=== PATIENT | male | born 1955 | race Caucasian/White ===

== ENCOUNTER 2016-04-08 08:13 | Inpatient (IN) | payer OTHER ==
--- NOTE | 2016-03-18 08:49 | PAT Medication Instructions ---
Service Date Mar 18, 2016. Current Home Medication List Atorvastatin (Lipitor), 40 MG PO QAM Diltiazem Hcl (Cardizem), 120 MG PO QAM Gabapentin (Neurontin), 900 MG PO AM/PM Gabapentin (Neurontin), 1,500 MG PO HS Ibuprofen (Advil), 400-600 MG PO TID Meloxicam (Mobic), 15 MG PO QAM Medication Instructions For Your Scheduled Surgery - Check with surgeon for instructions: Ibuprofen (Advil), 400-600 MG PO TID Meloxicam (Mobic), 15 MG PO QAM - Take the following medications the morning of surgery with a sip of water: Gabapentin (Neurontin), 900 MG PO AM/PM Atorvastatin (Lipitor), 40 MG PO QAM Diltiazem Hcl (Cardizem), 120 MG PO QAM - Take the following medications as scheduled the night before surgery: Gabapentin (Neurontin), 900 MG PO AM/PM Gabapentin (Neurontin), 1,500 MG PO HS If you have any questions please call us at [phone] (Francesca Kamara PA-C) or [phone] or [phone]
--- NOTE | 2016-03-18 09:18 | DIAGNOSTIC IMAGING REPORT ---
CHEST PREADMISSION(PA/LAT) CLINICAL HISTORY: Preoperative evaluation. COMPARISON STUDY: No previous studies for comparison. FINDINGS: Lung volumes are normal. Lungs are clear. There is no pneumothorax or pleural effusion. There is no evidence of pulmonary edema. Cardiac size is normal. Mediastinal contours are normal. IMPRESSION: No acute cardiopulmonary findings. Electronically signed by: César Berger M.D. 03/18/2016 9:16 AM Dictated Date/Time: 03/18/2016 9:14 AM
[2016-03-18 09:33] LABS: BASO % 0.3 %; BASO ABS # 0.03 K/uL (0-0.2); COMPLETE YES; HEMATOCRIT 43.6 % (42-52); IG% 0.7 %; LYMPH % 18.4 %; MEAN CELL VOLUME 89.2 fL (80-100); MEAN CORPUSCULAR HEMOGLOBIN 31.9 pg (25-34); MEAN CORPUSCULAR HGB CONC 35.8 g/dl (32-36); MEAN PLATELET VOLUME 9.9 fL (7.4-10.4); MONO % 8.3 %; NEUT % 71.3 %; PLATELET COUNT 228 K/uL (130-400); RED BLOOD COUNT 4.89 M/uL (4.7-6.1)
[2016-03-18 09:42] LABS: PROTHROMBIN TIME (PATIENT) 10.3 SECONDS (9.0-12.0)
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
[2016-04-08] VITALS (8 sets, daily range): BP systolic 96–126; BP diastolic 59–87; PULSE 71–85; TEMP 36.6–36.9; O2SAT 92–98; Ht 170.2 cm; Wt 87.8 kg
[~2016-04-08] VITALS: Ht 170.2 cm; Wt 87.8 kg
[~2016-04-08 08:13] MED LIST: ACETAMINOPHEN 500 MG TAB PO SCH; ATOR-24 PO; BUPIVACAINE 0.25% 30 ML VIAL ONE; BUPIVACAINE 0.5 % 5 MG/1 ML PF 10ML VIAL ONE; BUPIVACAINE LIPOSOME 266 MG, BUPIVACAINE/EPINEPHRINE INJ 50 ML, SODIUM CHLORIDE 0.9% PF... INFIL SCH; CEFAZOLIN 2000 MG/60 ML D5W 60 ML IV SCH; DILT120T8 PO; FAMOTIDINE 20 MG TAB PO SCH; GABA-113 PO; GABAPENTIN 300 MG CAP PO SCH; IBUP-1050 PO; LACTATED RINGER'S 1000ML 1,000 ML IV SCH; LACTATED RINGER'S 1000ML 500 ML IV ONE; LACTATED RINGER'S 1000ML IV SCH; MELO7.5T5 PO; METOCLOPRAMIDE HCL 10 MG TAB PO SCH; SCOPOLAMINE 1.5 MG TDSY TD SCH; TRANEXAMIC ACID INJ 1,000 MG in SODIUM CHLORIDE 0.9% 100ML 100 ML IV SCH
--- NOTE | 2016-04-08 08:41 | History & Physical Bridge Note ---
H&P Re-Evaluation Bridge Note: I have examined the patient, reviewed the History & Physical and in the interval since the performance of the History & Physical I have noted the following changes of clinical significance: No changes noted
[2016-04-08] MEDS ORDERED: LIDOCAINE HCL 2% 2 ML VIAL (20MG/ML) ONE (09:26)
[2016-04-08] MEDS ORDERED: PROPOFOL IV EMULSION 10 MG/ML 20 ML VIAL IV ONE ×3 (09:26→12:14)
[2016-04-08] MEDS ORDERED: MIDAZOLAM HCL 1 MG/ML 2ML VIAL ONE (09:26)
[2016-04-08] MEDS ORDERED: FENTANYL CITRATE INJ 50 MCG/1 ML 2 ML VIAL ONE (09:27)
[2016-04-08] MEDS ORDERED: BACITRACIN 50000 UNIT VIAL ONE (10:37)
[2016-04-08] MEDS ORDERED: BUPIVACAINE/EPINEPHRINE 0.25% 1:200,000 30 ML VIAL ONE (10:37)
[2016-04-08] MEDS ORDERED: BUPIVACAINE LIPOSOME 1/3% 266 MG/20 ML VIAL INFIL ONE (10:38)
[2016-04-08] MEDS ORDERED: SODIUM CHLORIDE 0.9% PF 50 ML VIAL ONE (10:38)
[2016-04-08] MEDS ORDERED: GLYCOPYRROLATE INJ 0.2 MG/ML VIAL ONE (11:00)
[2016-04-08] MEDS ORDERED: EpHEDrine SULFATE 50MG/5ML SYR ONE (11:19)
[2016-04-08] MEDS ORDERED: PHENYLEPHRINE HCL INJ 10 MG/ML VIAL ONE (11:19)
[2016-04-08] MEDS ORDERED: PROMETHAZINE HCL INJ 12.5 MG in SODIUM CHLORIDE 0.9% 50ML 50 ML IV PRN (12:00)
[2016-04-08] MEDS ORDERED: ONDANSETRON INJ 2 MG/ML 2 ML VIAL IV PRN ×2 (12:00→12:30)
[2016-04-08] MEDS ORDERED: FLUMAZENIL 0.1 MG/1 ML 10 ML VIAL IV PRN (12:00)
[2016-04-08] MEDS ORDERED: LABETALOL HCL IV 5 MG/ML 20ML IV PRN (12:00)
[2016-04-08] MEDS ORDERED: EpHEDrine SULFATE INJ 50 MG/ML AMP IV PRN (12:00)
[2016-04-08] MEDS ORDERED: ATROPINE SULFATE 0.1 MG/ML 5ML SYR IV PRN (12:00)
--- NOTE | 2016-04-08 12:29 | [facility] Post Operative Brief Note ---
Immediate Operative Summary Operative Date Apr 08, 2016. Pre-Operative Diagnosis Right Knee Degenerative Joint Disease Post-Operative Diagnosis Right Knee Degenerative Joint Disease Procedure(s) Performed Right Total Knee Arthroplasty, Cemented Surgeon Dr. Esparza Complaint Adjuster Surgeon(s) Pranav Diaz PA-C Estimated Blood Loss 50 ML Findings Right Knee DJD Fluids (cc crystalloids) 1600 cc Specimens A: Right Knee Bone and Tissue Drains None Anesthesia Spinal Complication(s) None Disposition Recovery Room / PACU
[2016-04-08] MEDS ORDERED: MoRPHine SULFATE 2 MG/ML CARP IV PRN (12:30)
[2016-04-08] MEDS ORDERED: OXYCODONE HCL IR 5 MG TAB (IMMEDIATE RELEASE) PO PRN (12:30)
[2016-04-08] MEDS ORDERED: ZOLPIDEM TARTRATE 5 MG TAB PO PRN (12:30)
[2016-04-08] MEDS ORDERED: DiphenhydrAMINE HCL 50 MG/ML VIAL IV PRN (12:30)
[2016-04-08] MEDS ORDERED: MAGNESIUM HYDROXIDE SUSP 30 ML UDC PO PRN (12:30)
[2016-04-08] MEDS ORDERED: METOCLOPRAMIDE HCL INJ 5 MG/ML 2 ML VIAL IV PRN (12:30)
[2016-04-08] MEDS ORDERED: ALUMINUM/MAGNESIUM/SIMETH (MAALOX MAX) 30 ML UDC PO PRN (12:30)
[2016-04-08] MEDS ORDERED: BISACODYL 10 MG SUPP PR PRN (12:30)
[2016-04-08] MEDS ORDERED: SILVER SULFADIAZINE 1% CR 50 GM JAR EXT PRN (12:30)
[2016-04-08] MEDS ORDERED: TAMSULOSIN HCL 0.4 MG CAP PO PRN (12:30)
--- NOTE | 2016-04-08 13:10 | Anesthesiology Progress Note ---
Anesthesia Post Op Note Date & Time Apr 08, 2016 at 13:10 Vital Signs Pain Intensity: 5 Vital Signs Past 12 Hours Date Time Temp Pulse Resp B/P Pulse Ox O2 Delivery O2 Flow Rate FiO2 04/08/16 13:05 74 18 107/57 97 Nasal Cannula 2 04/08/16 12:55 82 18 110/54 99 Nasal Cannula 2 04/08/16 12:45 18 110/78 99 Mask 10 04/08/16 12:35 36.9 76 18 109/74 99 Mask 10 04/08/16 08:50 36.8 74 18 126/87 96 Room Air Notes Mental Status: alert / awake / arousable, participated in evaluation Pt Amnestic to Procedure: Yes Nausea / Vomiting: adequately controlled Pain: adequately controlled Airway Patency, RR, SpO2: stable & adequate BP & HR: stable & adequate Hydration State: stable & adequate Neuraxial Anesthesia: was administered, sensory block is resolving Anesthetic Complications: no major complications apparent
--- NOTE | 2016-04-08 13:13 | DIAGNOSTIC IMAGING REPORT ---
TWO VIEWS RIGHT KNEE CLINICAL HISTORY: Postoperative examination. FINDINGS: AP and crosstable lateral portable views of the right knee are obtained. A right knee arthroplasty is in near anatomic alignment. There has been undersurface remodeling of the patella. No acute fracture is seen. There are expected postoperative changes around the knee including skin clips, soft tissue edema, and subcutaneous gas. IMPRESSION: Expected postoperative changes status post right knee arthroplasty. No acute fracture is seen. Electronically signed by: Perry Peoples M.D. 04/08/2016 1:11 PM Dictated Date/Time: 04/08/2016 1:11 PM
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
[2016-04-08] MEDS: D5W AND 1/2NSS + 20MEQ KCL 1,000 ML IV SCH ×2 (14:29→23:15)
[2016-04-08 15:24] LABS: CREATININE 0.75 mg/dl (0.60-1.40)
[2016-04-08] MEDS: GABAPENTIN 300 MG CAP PO SCH ×2 (15:31→20:42)
[2016-04-08] MEDS ORDERED: INFLUENZA ADMINISTRATION CHARGE ONE (16:00)
[2016-04-08] MEDS: CHECK SCOPOLAMINE PATCH PLACEMENT SCH ×2 (16:15→23:27)
[2016-04-08] MEDS: INFLUENZA VIRUS QUAD VACCINE 0.5 ML SYR IM. ONE ×2 (16:43→17:05)
[2016-04-08] MEDS: FERROUS GLUCONATE 324 MG TAB PO SCH (17:52)
[2016-04-08] MEDS: KETOROLAC TROMETHAMINE 30 MG/ML VIAL IV. SCH ×2 (17:52→23:15)
[2016-04-08] MEDS: ACETAMINOPHEN 500 MG TAB PO SCH (17:54)
[2016-04-08] MEDS ORDERED: TRANEXAMIC ACID INJ 1,000 MG in SODIUM CHLORIDE 0.9% 100ML 100 ML IV SCH (18:00)
[2016-04-08] MEDS: CEFAZOLIN IV 2,000 MG in DEXTROSE 5% 50ML 50 ML IV SCH (18:25)
[2016-04-08] MEDS: DOCUSATE SODIUM 100 MG CAP PO SCH (20:42)
[2016-04-08] MEDS: ASPIRIN 325 MG ECTAB PO SCH (20:42)
[2016-04-08] MEDS: TAPENTADOL ER 50 MG TABCR PO SCH (20:42)
[2016-04-09] VITALS (7 sets, daily range): BP systolic 100–118; BP diastolic 57–76; PULSE 69–86; TEMP 36.3–37; O2SAT 94–98
[2016-04-09] MEDS: CEFAZOLIN IV 2,000 MG in DEXTROSE 5% 50ML 50 ML IV SCH (01:47)
[2016-04-09] MEDS: ACETAMINOPHEN 500 MG TAB PO SCH ×3 (01:47→18:01)
[2016-04-09] MEDS: KETOROLAC TROMETHAMINE 30 MG/ML VIAL IV. SCH ×4 (06:00→23:40)
[2016-04-09] MEDS: D5W AND 1/2NSS + 20MEQ KCL 1,000 ML IV SCH (06:01)
[2016-04-09 06:13] LABS: HEMATOCRIT 32.3 % (42-52); MEAN CELL VOLUME 89.2 fL (80-100); MEAN CORPUSCULAR HEMOGLOBIN 30.9 pg (25-34); MEAN CORPUSCULAR HGB CONC 34.7 g/dl (32-36); PLATELET COUNT 158 K/uL (130-400); RED BLOOD COUNT 3.62 M/uL (4.7-6.1)
[2016-04-09 06:43] LABS: BUN/CREATININE RATIO 16.2 (10-20); CALCIUM 7.7 mg/dl (8.5-10.1); CREATININE 1.1 mg/dl (0.60-1.40); POTASSIUM 3.9 mmol/L (3.5-5.1)
[2016-04-09] MEDS: CHECK SCOPOLAMINE PATCH PLACEMENT SCH ×3 (08:00→23:41)
[2016-04-09] MEDS: FERROUS GLUCONATE 324 MG TAB PO SCH ×3 (08:50→18:00)
[2016-04-09] MEDS: DOCUSATE SODIUM 100 MG CAP PO SCH ×2 (08:51→20:40)
[2016-04-09] MEDS: MULTIVITAMIN TAB PO SCH (08:51)
[2016-04-09] MEDS: ATORVASTATIN 20 MG TAB PO SCH (08:51)
[2016-04-09] MEDS: ASPIRIN 325 MG ECTAB PO SCH ×2 (08:51→20:40)
[2016-04-09] MEDS: DILTIAZEM HCL 120 MG CAPCR PO SCH (08:51)
[2016-04-09] MEDS: PANTOprazole SOD 40 MG TAB PO SCH (08:52)
[2016-04-09] MEDS: TAPENTADOL ER 50 MG TABCR PO SCH ×2 (08:52→20:40)
[2016-04-09] MEDS: GABAPENTIN 300 MG CAP PO SCH ×3 (08:52→20:40)
[2016-04-09] MEDS ORDERED: OXYC-57 PO (09:52)
[2016-04-09] MEDS ORDERED: MORP15TA19 PO (09:52)
[2016-04-09] MEDS ORDERED: ASPEC325 PO (09:52)
--- NOTE | 2016-04-09 09:54 | Discharge Instructions ---
Discharge Instructions Admission Reason for Admission: Right Knee Pain, Bilateral Knee Osteoarthritis Discharge Discharge Diagnosis / Problem: Right Knee Replacement Discharge Goals Goal(s): Decrease discomfort, Improve function, Increase independence, Improve disease control, Therapeutic intervention Activity Recommendations Activity Limitations: per Instructions/Follow-up section Weightbearing Status: Right weightbearing . Instructions / Follow-Up Instructions / Follow-Up ACTIVITY RECOMMENDATIONS: Physical Therapy: * You will go to physical therapy three times each week for four to six weeks after your surgery in order to regain your knee range of motion and to retrain your knee to work properly. * It is just as important to make sure you are getting your knee perfectly straight as it is to regain your knee bend. * Taking a pain pill an hour before therapy can help you have a more productive and comfortable therapy session. Home Exercise: * You were shown a series of exercises (heel props, heel slides, etc.) in the hospital. Do these exercises three to four times each day including the exercises you were shown in physical therapy. Walking: * Get up and walk several times each day. For the first four weeks, try not to stand or walk for more than one hour at a time. If you do stand or walk for more than one hour, you will not hurt anything, but your knee and leg will likely swell. * As you feel comfortable, you may change from the walker or crutches to a cane and then to independent walking. MEDICATIONS: New Medicine: * You will likely be taking one or more of these medications: 1. MS Contin - A long-acting pain medication. Take 1 tablet twice a day for the first ten days to decrease your baseline level of pain. 2. Percocet - A quick and shorter-acting pain medication. Take one to two tablets every four to six hours to lessen your pain. 3. Aspirin - Thins your blood to lessen the chance of forming a blood clot. * The most common side effects of pain medicine and iron are nausea and constipation. If nausea or constipation is too much of a problem or if you have any questions about your new medicines or doses, call [facility] at [phone]. We will try to help you manage these issues. VERY IMPORTANT TO READ AND REVIEW" Pain: * The immediate post-operative period after knee replacement surgery is often quite painful. * You are given a prescription for pain medicine. You should take it, as directed, when you need it, especially before physical therapy and before going to bed. Pain that interferes with sleep is very common and can last several months. * You will likely need pain medicine for the first four to six weeks. It will not stop all of the pain. The pain will lessen and as you feel better, you may change to milder pain medicine such as Tylenol. * The most common side effects of pain medicine are nausea and constipation, so don't take more than you need. SPECIAL CARE INSTRUCTIONS: TEDs/Elastic Stockings: * The white elastic stockings help limit swelling and prevent blood clots from forming in your legs. The more you wear them, the more they work. * Wear them for six weeks after knee replacement surgery and four weeks after partial knee replacement. Prevention of Infection: * Take antibiotics one hour before any dental cleaning, dental work, urological procedure, gastrointestinal procedure or any invasive surgery in order to prevent your new joint from getting infected. * You may get the antibiotics from the doctor performing the procedure or you may call our office at before and we will call in a prescription to the pharmacy of your choice. Things to Watch For: * Drainage from the incision site that occurs more than one week after your surgery. * Severely increased knee/leg pain or swelling. * Increased redness at the incision site. * Fever above 102 degrees Fahrenheit. * Unusual chest pain or shortness of breath. * Unusual pain or burning with urination. Call [facility] at with any of the above problems or if you have any questions about your medicines or recovery. FOLLOW UP VISIT: Make an appointment to see your doctor for approximately two weeks after surgery for a progress check and staple removal by calling the office at . Current Hospital Diet Patient's current hospital diet: Regular Diet Discharge Diet Recommended Diet: Regular Diet Procedures Procedures Performed: Right Total Knee Arthroplasty, Cemented Pending Studies Studies pending at discharge: no Medical Emergencies . Who to Call and When: Medical Emergencies: If at any time you feel your situation is an emergency, please call [phone] immediately. . Non-Emergent Contact Non-Emergency issues call your: Surgeon . "Provider Documentation" section prepared by Suraj Esparza. VTE Core Measure Inpt VTE Proph given/why not?: Other Anticoagulation, T.E.D. Stockings, SCD's
--- NOTE | 2016-04-09 10:04 | PROGRESS NOTE ---
DATE: 04/09/2016 DATE: 04/09/2016. SUBJECTIVE: A 60-year-old gentleman postop day 1 from right knee replacement. He is doing well. Pain is controlled. Denies any chest pain or shortness of breath. Not feeling dizzy or lightheaded. OBJECTIVE: VITAL SIGNS: Temperature 36.5. Vital signs stable. PHYSICAL EXAMINATION: GENERAL: Reveals a pleasant, middle-aged male. He is sitting up in his bedside chair and looks pretty comfortable. LUNGS: Clear to auscultation. HEART: Regular rate and rhythm. ABDOMEN: Soft, nontender, nondistended. EXTREMITY EXAMINATION: Grossly neurovascularly intact except as follows: Examination of the right lower extremity reveals the dressing to be clean, dry, and intact. He can dorsiflex and plantarflex his foot appropriately. He is neurologically intact. LABORATORY DATA: Hemoglobin 11.2, hematocrit 32.3. Electrolytes are stable. ASSESSMENT: A 60-year-old gentleman postop day 1 from right knee replacement, doing pretty well. Pain is controlled. Therapy has gone reasonably well so far. PLAN: 1. DVT prophylaxis including thigh-high TEDs, SCDs, and aspirin twice a day. 2. PT/OT. Weightbearing as tolerated. Right total knee protocol. 3. Pain control, doing pretty well with current pain regimen. 4. Disposition: He is planning to be discharged to home with some home health once adequately recovered.
[2016-04-10] MEDS: ACETAMINOPHEN 500 MG TAB PO SCH ×2 (02:00→10:02)
[2016-04-10] MEDS: KETOROLAC TROMETHAMINE 30 MG/ML VIAL IV. SCH (05:44)
[2016-04-10 06:05] VITALS: BP 145/68; PULSE 79; TEMP 36.6; O2SAT 97
--- NOTE | 2016-04-10 07:56 | PROGRESS NOTE ---
DATE: 04/10/2016 SUBJECTIVE: A 60-year-old gentleman postop day 2 from a right knee replacement. He is doing pretty well. Pain is controlled. Denies any chest pain or shortness of breath. Not feeling dizzy or lightheaded. OBJECTIVE: VITAL SIGNS: Temperature 36.6. Vital signs stable. PHYSICAL EXAMINATION: GENERAL: Reveals a healthy, pleasant middle-aged male. He is sitting up in bed and looks pretty comfortable. LUNGS: Clear to auscultation. HEART: Has a regular rate and rhythm. ABDOMEN: Soft, nontender, nondistended. EXTREMITIES: Grossly neurovascularly intact except as follows. Examination of the right lower extremity reveals the leg to be well aligned. He does have some moderate swelling. There is no drainage. He can dorsiflex and plantarflex his foot appropriately. Calf is soft and supple. ASSESSMENT: A 60-year-old gentleman postop day 2 from right knee replacement, doing pretty well. Pain is controlled. He is neurologically intact. PLAN: 1. DVT prophylaxis including thigh-high TEDs, SCDs, and aspirin twice a day. 2. PT/OT. Weight bear as tolerated. Right total knee protocol. 3. Pain control, doing pretty well with current pain regimen. 4. Disposition: Plan to discharge to home after therapy today.
[2016-04-10] MEDS: FERROUS GLUCONATE 324 MG TAB PO SCH (09:03)
[2016-04-10] MEDS: ASPIRIN 325 MG ECTAB PO SCH (09:05)
[2016-04-10] MEDS: ATORVASTATIN 20 MG TAB PO SCH (09:05)
[2016-04-10] MEDS: GABAPENTIN 300 MG CAP PO SCH (09:05)
[2016-04-10] MEDS: DOCUSATE SODIUM 100 MG CAP PO SCH (09:05)
[2016-04-10] MEDS: MULTIVITAMIN TAB PO SCH (09:05)
[2016-04-10] MEDS: PANTOprazole SOD 40 MG TAB PO SCH (09:06)
[2016-04-10] MEDS: TAPENTADOL ER 50 MG TABCR PO SCH (09:06)
[2016-04-10 09:24] VITALS: BP 145/68; PULSE 79; TEMP 36.6; O2SAT 97
[2016-04-10] MEDS: DILTIAZEM HCL 120 MG CAPCR PO SCH (10:02)
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
== END 2016-04-10 10:25 | disposition home or self-care (01) | DRG 470 ==
LOC: ENRESERVTM → ENRESERVDT → C.ACU 08:13 → C.3E 08:35
PROVIDERS: ADMIT Orthopaedic Surgery Sports Medicine; ATTEND Orthopaedic Surgery Sports Medicine
PROC: 0SRC0J9 Replacement of Right Knee Joint with Synthetic Substitute, Cemented, Open Approach (ICD-10-PCS; principal; 2016-04-08 10:30)
DX: M17.31 Unilateral post-traumatic osteoarthritis, right knee (principal); W17.2XXS Fall into hole, sequela; V89.2XXS Person injured in unspecified motor-vehicle accident, traffic, sequela; M23.51 Chronic instability of knee, right knee; M23.8X1 Other internal derangements of right knee; I10 Essential (primary) hypertension; E78.00 Pure hypercholesterolemia, unspecified; G89.29 Other chronic pain; M79.2 Neuralgia and neuritis, unspecified; I73.9 Peripheral vascular disease, unspecified; F17.210 Nicotine dependence, cigarettes, uncomplicated; E66.9 Obesity, unspecified; Z68.30 Body mass index [BMI] 30.0-30.9, adult; Z23 Encounter for immunization; Z79.1 Long term (current) use of non-steroidal anti-inflammatories (NSAID); Z79.899 Other long term (current) drug therapy

== ENCOUNTER 2024-02-19 06:16 | Observation (INO) ==
--- NOTE | 2024-01-18 08:51 | PAT Medication Instructions ---
Medication Instructions Date of Service January 18, 2024 Home Medications ascorbic acid (vitamin C) 1,000 mg tablet (Vitamin C) 1 g PO QPM atorvastatin 40 mg tablet 40 mg PO QPM ibuprofen 200 mg tablet 200 mg PO Q6H PRN tamsulosin 0.4 mg capsule 0.4 mg PO QPM ASK your surgeon for instructions ibuprofen 200 mg tablet 200 mg PO Q6H PRN Take evening before surgery ascorbic acid (vitamin C) 1,000 mg tablet (Vitamin C) 1 g PO QPM atorvastatin 40 mg tablet 40 mg PO QPM tamsulosin 0.4 mg capsule 0.4 mg PO QPM Other Notes NOTHING TO EAT OR DRINK AFTER MIDNIGHT. If you have any questions please call us at [phone] or [phone] or [phone] or [phone]
--- NOTE | 2024-01-21 10:59 | Anesthesiology Consultation ---
Date of Service January 21, 2024 Assessment & Plan (1) Encounter for pre-operative examination: - Infectious disease screening: Per assessment on 01/21/24- No known recent infectious disease contacts or current infectious disease symptoms. - Outpatient joint assessment: Pt currently scheduled for inpatient pathway. If surgeon requests review for outpatient joint pathway, patient is an acceptable candidate for outpatient joint program from anesthesia standpoint pending surgeon's office assessment that patient is motivated, has good support and completes Same Day Joint Program preop requirements. Chart Review Chart Review: Acceptable Risk for Surgery and Patient seen in Pre Admission Testing Teaching & Discussion Pre-Anesthesia Teaching/Discussion Notes: Instructed NPO after midnight before surgery,except medications with 15 cc of water. Medication instructions provided according to the PAT guidelines. History Surgery Operation Date: 02/19/24 10:40 Proposed Procedures p Right Total Hip Arthroplasty - Suraj Esparza MD Height/Weight Height: 5 ft 7 in Weight: 81.5 kg Allergies Allergy/AdvReac Type Severity Reaction Status Date / Time No Known Allergies Allergy Unverified 01/15/24 15:01 Medications Home Medications Medication Instructions Recorded Confirmed Last Taken ascorbic acid (vitamin C) 1,000 mg 1 g PO QPM 01/15/24 01/15/24 Unknown tablet (Vitamin C) atorvastatin 40 mg tablet 40 mg PO QPM 01/15/24 01/15/24 Unknown ibuprofen 200 mg tablet 200 mg PO Q6H PRN prn 01/15/24 01/15/24 Unknown tamsulosin 0.4 mg capsule 0.4 mg PO QPM 01/15/24 01/15/24 Unknown Past Medical History Medical History BPH (benign prostatic hyperplasia) Degenerative joint disease of right hip Hyperlipidemia Exercise / Class Metabolic Activity II 4-5 Yardwork/Stairs/Walk up hill (One FS: No CP, no SOB) Past Surgical History Surgical History History of arthroplasty of right knee Right TKA (04/08/16): SAB at L3-4 + regional at [facility] History of colonoscopy History of cystoscopy History of foot surgery Left club foot repair/revisions (childhood) History of prostate biopsy benign Past Anesthesia History No Hx of Anesthesia Complications and No Family Hx of Anesthesia Complications History of PONV No Hx of PONV and No Hx of Motion Sickness Social History Smoking Status: Current every day smoker Smoking cigarettes per day: 1 PPD x 47 years Do You Dip or Chew Tobacco: No Hx Alcohol Use: Yes Alcohol type: beer alcohol intake frequency: 3 or more drinks per day (3-4 beers/day (afternoon/evening)) Hx Substance Use: No substance use type: does not use Review of Systems Patient denies chest pain, shortness of breath, dyspnea on exertion, fever, chills, cough, wheezing, palpitations. Physical Exam Vital Signs BP 132/85 P 73 TEMP 98.1 SP02 97%RA RESP 16 Physical Full cervical extension range of motion. Full TMJ range of motion. TMD > 3.5 finger breaths Mallampati Score II Dentition: upper full denture, lower partial (3 teeth remaining on bottom) Lungs: course breath sounds Cardiac: regular rate and rhythm, no murmurs noted Spine: normal Carotid arteries: negative bruit Extremities: no LE edema Lab Results Anesthesia Preop Results Results Anesthesia Widget: WBC 5.87 K/ul (4.8-10.8) 01/21/24 Hgb 16.4 g/dl (14.0-18.0) 01/21/24 Hct 47.5 % (42.0-52.0) 01/21/24 Plt 245 K/uL (130-400) 01/21/24 Na 140 mmol/L (136-145) 01/21/24 K 4.7 mmol/L (3.5-5.1) 01/21/24 Cl 105 mmol/L (98-107) 01/21/24 CO2 28 mmol/L (21-32) 01/21/24 BUN 13 mg/dl (6-23) 01/21/24 Creat 0.70 mg/dl (0.6-1.4) 01/21/24 Glucose Level 107 mg/dl (70-99(Fasting)) H 01/21/24 PT 10.2 Seconds (9.0-12.0) 01/21/24 PTT 25 Seconds (21-31) 01/21/24 INR 0.9 (0.9-1.1) 01/21/24 Blood Type A Positive 01/21/24 Antibody Screen NEGATIVE 01/21/24 Testing Electrocardiogram Date: 01/21/24 NSR at 65bpm. "Normal ECG" Chest X-Ray Date: 01/21/24 FINDINGS: The lungs are clear. Cardiomediastinal silhouette is within normal limits. No acute osseous abnormalities. No pleural effusion or pneumothorax. IMPRESSION: No acute cardiopulmonary findings.
--- NOTE | 2024-02-13 09:33 | History & Physical Report ---
Date of Service February 13, 2024 Assessment & Plan (1) Degenerative joint disease of right hip: 68-year-old fairly active healthy gentleman now almost 8 years out from a right knee replacement with advanced right hip DJD. His symptoms and x-rays are progressed markedly over the past 2 years. He is ready to have his right hip fixed. Plan: Orgran taken to the operating room and do a right total hip replacement. The risks Mente this procedure explained to the patient in depth. He understands. Will likely send him home with a little bit of tramadol but did not take much pain medicine before so we will limit the number. Will be planning on using aspirin for DVT prophylaxis. Plan to be discharged to home with some home health. (2) Hyperlipidemia: (3) History of arthroplasty of right knee: History of Present Illness Chief Complaint: . Right hip and leg pain 10+ years out from a total knee replacement. Primary Care Provider: NO PCP . The patient is a 68-year-old gentleman that now almost 8 years out from a right knee replacement. His knee is done pretty well but he has developed pain and discomfort in the right leg over the past several years. Described to gotten worse over time. Describes groin pain thigh pain and just right leg pain. No numbness. He has become more debilitated by this. He is limited his activities. He would like this fixed. Of note, he did quite well after his knee replacement surgery. He really did not take much in way of pain medicine and recovered nicely. Allergies Allergy/AdvReac Type Severity Reaction Status Date / Time No Known Allergies Allergy Unverified 01/15/24 15:01 Home Medications Medication Instructions Recorded Confirmed Type ascorbic acid (vitamin C) 1,000 mg 1 g PO QPM 01/15/24 01/15/24 History tablet (Vitamin C) atorvastatin 40 mg tablet 40 mg PO QPM 01/15/24 01/15/24 History ibuprofen 200 mg tablet 200 mg PO Q6H PRN prn 01/15/24 01/15/24 History tamsulosin 0.4 mg capsule 0.4 mg PO QPM 01/15/24 01/15/24 History Past Med/Surg History Problem List Encounter for pre-operative examination Medical History BPH (benign prostatic hyperplasia) Hyperlipidemia Degenerative joint disease of right hip Surgical History History of foot surgery Left club foot repair/revisions (childhood) History of arthroplasty of right knee Right TKA (04/08/16): SAB at L3-4 + regional at [facility] History of colonoscopy History of cystoscopy History of prostate biopsy benign Social History Smoking Status: Current every day smoker Tobacco Type: Cigarettes Cigarettes Per Day: 1 PPD x 47 years; Second Hand Exposure: No; Do You Dip or Chew Tobacco: No; Tobacco Cessation Education Requested by Patient: No Hx Alcohol Use: Yes Alcohol type: beer Hx Substance Use: No Preferred Language: Moldovan [employer] L[employer] Technician Required: No Beliefs That Will Affect Care: None Current Living Situation: Parent Other Information That Helps Us Care for You: No Feels Safe at Home: Yes Safety Concerns: Feels Safe At This Time Assistive Devices: Denture - Upper and Denture - Lower Review of Systems All systems reviewed & are unremarkable except as noted in HPI & below. Physical Exam . Physical examination reveals a pleasant healthy middle-age male. Examination of the right leg reveal patient ambulates with a slight bit of a limp. His leg lengths are fairly equal. He has pain with any type of hip motion. Internal rotation to about 10 degrees. Negative straight leg raise. He is neurologically intact. Examination of the right knee reveals well-healed incision. No swelling. Range of motion 0-1 20. No instability. Constitutional WD/WN, vitals as above Respiratory normal respiratory effort, lungs clear to auscultation Cardiovascular RRR, no murmur, no edema Gastrointestinal (Abdomen) normal bowel sounds, soft, nontender, no hepatosplenomegaly Results & Data Results & Data Laboratory Results . Diagnostic Findings . X-rays of the right hip were reviewed. She will advanced right hip arthritis. Got complete loss of his superior joint space. He is got cystic change on both sides of the joint. This has progressed significantly over the past 2 years. PG Care Time/CCT Total # of Minutes Spent Total Time Spent with Patient: Total time spent is greater than 50% in coordination of care (as documented) at patient's floor/unit and/or counseling patient: Coding Level of Care Code None Diagnoses Degenerative joint disease of right hip M16.11 Hyperlipidemia E78.5 History of arthroplasty of right knee Z96.651
[~2024-02-19 06:16] MED LIST changes: -ACETAMINOPHEN 500 MG TAB PO SCH; -ATOR-24 PO; -BUPIVACAINE 0.25% 30 ML VIAL ONE; -BUPIVACAINE 0.5 % 5 MG/1 ML PF 10ML VIAL ONE; -BUPIVACAINE LIPOSOME 266 MG, BUPIVACAINE/EPINEPHRINE INJ 50 ML, SODIUM CHLORIDE 0.9% PF... INFIL SCH; -CEFAZOLIN 2000 MG/60 ML D5W 60 ML IV SCH; -DILT120T8 PO; -FAMOTIDINE 20 MG TAB PO SCH; -GABA-113 PO; -GABAPENTIN 300 MG CAP PO SCH; -IBUP-1050 PO; +KETAMINE HCL 10MG/ML SYR ONE; -LACTATED RINGER'S 1000ML 1,000 ML IV SCH; -LACTATED RINGER'S 1000ML 500 ML IV ONE; -LACTATED RINGER'S 1000ML IV SCH; -MELO7.5T5 PO; -METOCLOPRAMIDE HCL 10 MG TAB PO SCH; -SCOPOLAMINE 1.5 MG TDSY TD SCH; -TRANEXAMIC ACID INJ 1,000 MG in SODIUM CHLORIDE 0.9% 100ML 100 ML IV SCH
[2024-02-19] MEDS ORDERED: BUPIVACAINE 0.5 % 5 MG/1 ML PF 10ML VIAL ONE (06:34)
[2024-02-19] MEDS: LR 500ML BOLUS, THEN 15ML/HR IV SCH (06:49)
[2024-02-19] MEDS: FAMOTIDINE 20 MG TAB PO SCH (06:50)
[2024-02-19] MEDS: dexAMETHasone**PF** 10 MG/ML VIAL IV SCH (06:50)
[2024-02-19] MEDS: ACETAMINOPHEN 500 MG TAB PO SCH ×2 (06:50→13:36)
[2024-02-19] MEDS: CeleBREX 200 MG CAP PO SCH (06:50)
[2024-02-19] MEDS: LR 60ML/HR IV SCH (06:50)
[2024-02-19] MEDS: METOCLOPRAMIDE HCL 10 MG TABLET PO SCH (06:50)
--- NOTE | 2024-02-19 06:52 | History & Physical Bridge Note ---
Date of Service February 19, 2024 History & Physical Bridge Note I have examined the patient, reviewed the History & Physical and in the interval since the performance of the History & Physical I have noted the following changes of clinical significance: no changes noted
[2024-02-19] MEDS ORDERED: ATROPINE SULFATE 0.1 MG/ML 10ML SYR IV PRN (08:18)
[2024-02-19] MEDS ORDERED: ONDANSETRON INJ 2 MG/ML 2 ML VIAL IV PRN ×2 (08:18→12:24)
[2024-02-19] MEDS ORDERED: PROMETHAZINE HCL 6.25 MG in SODIUM CHLORIDE 0.9% 50 ML IV PRN (08:18)
[2024-02-19] MEDS ORDERED: fentaNYL citrate PF 100 MCG/2 ML VIAL IV PRN (08:18)
[2024-02-19] MEDS ORDERED: ePHEDrine sulfate 50 MG/ML AMP IV PRN (08:18)
[2024-02-19] MEDS ORDERED: HYDROmorphone INJ 2 MG/ML SYR/VIAL IV PRN (08:18)
[2024-02-19] MEDS ORDERED: MIDAZOLAM HCL 1 MG/ML 2ML VIAL ONE (08:22)
[2024-02-19] MEDS ORDERED: ONDANSETRON INJ 2 MG/ML 2 ML VIAL ONE (08:24)
[2024-02-19] MEDS ORDERED: PROPOFOL IV EMULSION 10 MG/ML 100 ML VIAL IV ONE (08:24)
[2024-02-19] MEDS ORDERED: PHENYLEPHRINE HCL 10 MG/ML VIAL ONE (08:25)
[2024-02-19] MEDS: TRANEXAMIC ACID 1,000 MG **IV Pre-op IV SCH (08:50)
[2024-02-19] MEDS: ceFAZolin 2000MG 2,000 MG/15 ML SYR IV SCH ×2 (09:02→17:15)
[2024-02-19] MEDS: BUPIVACAINE/EPINEPHRINE 0.5% MPF 1:200,000 30 ML VIAL ONE (09:44)
[2024-02-19] MEDS ORDERED: ALBUMIN HUMAN 5% 12.5 GM/250 ML VIAL IV ONE (09:51)
--- NOTE | 2024-02-19 10:32 | Operative Report ---
PG Post Operative Report Pre & Post Diagnosis Operation Date: 02/19/24 08:50 Pre-Op Diagnosis: Right Hip Osteoarthritis Post-Op Diagnosis: Right Hip Osteoarthritis I identified the patient and participated in the time-out.: Yes Procedure Operation Date: 02/19/24 08:50 Actual Procedures p Right Total Hip Arthroplasty(Right) - Suraj Esparza MD Surgeon Suraj Esparza MD Lead Athlete Kb Diaz PA-C Estimated Blood Loss 100 Findings Consistent with Post-Op Diagnosis Operative findings were advanced right hip DJD. He had grade 4 [id number] disease the femoral head and acetabulum. Not much in the way of osteophytes. He did have a moderate-sized joint effusion. Specimens Right femoral head sent for pathology. Anesthesia Type Spinal MAC Complications none Disposition Accompanied Patient To Recovery: No Indications The patient is a 68-year-old gentleman whose had a several year history of increasing right hip pain discomfort described to gotten worse over time. Failed conservative measures. X-rays reveal advanced right hip arthritis. He elected proceed with total hip arthroplasty. Description of Procedure Operative implants consist of: 1 Biomet G7 size 54 mm acetabular shell. 2. Thendara hole eliminator. 3. Highly cross-linked polyethylene liner with a 54 mm outer diameter and a 40 mm diameter. 5. DePuy Corail size 12 KLA femoral stem. 6. +8.5/40 mm ceramic articular ball. The patient was taken the op room, identified, placed on the operating table in the supine position. All conductors were appropriately padded. IV antibiotics fibra anesthesia team. A spinal anesthetic been implemented holding area. The patient was then placed in the left lateral decubitus position. An axillary roll was placed. Distal Birkett position was used for positioning. The right hip and leg were then prepped and draped in usual sterile fashion. A posterolateral approach to the right hip was then performed to a curvilinear incision centered over the greater trochanter. Sharp dissection got through subcutaneous tissue dental of the IT band gluteal fascia but the IT band gluteal fascia was sized longitudinally in line with skin incision. The underlying greater bursa was excised. The piriformis and external rotators along with the posterior hip joint capsule were then released in the posterior aspect the hip as a single layer. The hip was internally rotated and dislocated. A femoral neck osteotomy cut was made with Final Cut about 10 mm above the lesser trochanter. Femoral head was removed and sent for pathology. The femur was retracted anteriorly. Attention drawn the acetabulum. The acetabular labrum was excised. The pulmonary fat was excised. Sequential reaming the acetabulum was then performed beginning with a size 45 and progressing up to a 53. I reamed a little bit with a 54 reamer and then placed a 54 mm Biomet G7 acetabular shell in about 4 degree lateral opening and 20 degrees of anteversion. It was fixed with two 6.5 screws. A trial liner was placed. Attention drawn the femur. The proximal femur was entered with cookie-cutter followed by canal finder. I then broached beginning the size 8 and progressing up to 12 to got excellent fitted to 12. We trialed the hip and the +5 articular ball provided good stability but the soft tissue tension was still a bit lax. I elected to place a +8.5 neck length head. This hip was fully stable and leg lengths appear equal. Soft tissue tension seemed appropriate. We elect to place these implants. All trial implants were removed. An apex hole limiter was placed. Highly cross-linked polyethylene liner was placed. A size 12 KLA femoral stem was impacted in position. A +8.5/40 mm ceramic articular ball was placed. Hip was located once again found to be stable. Attention drawn toward closing. The wound was irrigated coconuts with pulsatile lavage solution. I did inject locally with 60 cc of half percent Marcaine with epinephrine. The posterior capsule and external rotators were then repaired through drill holes in the posterior trochanter with #2 Tycron suture. The IT band gluteal fascia then closed in 1 PDS suture in a running fashion with subcutaneous tissue then closed with 2 layers with the deep layer #1 Vicryl suture in the subcutaneous tissues with 2-0 Dexon suture in a buried interrupted fashion. Skin was closed skin jeffery. Leg was then cleaned and dried and a sterile dressing with Xeroform, 4 fours, sterile ABD pad, foam tape was applied. Patient then transferred to the recovery room in stable condition. Patient tolerated procedure well no complications. Kb Diaz, my physician assistant head cashier, was present for the entire procedure. His assistance was essential and required for appropriate patient positioning, prepping and draping, surgical exposure, performing the technical details of the operation, placement the implants, closure of the wound, and placement of the sterile bandage. I attest to the content of the Intraoperative Record and any orders documented therein. Any exceptions are noted below.
--- NOTE | 2024-02-19 11:11 | XRay Report ---
XR hip 1V RT w pelvis CLINICAL HISTORY: IN PACU - Post Surgical TECHNIQUE: 1 view of the right hip and single frontal view of the pelvis were obtained. Comparison: Comparison is made to hip radiographs 12/07/2023 FINDINGS: Patient is status post right total hip arthroplasty with expected postsurgical changes including soft tissue swelling and subcutaneous emphysema. IMPRESSION: Expected postoperative appearance status post placement of total hip arthroplasty. ACT 112: Negative or not required by law. Electronically signed by: Asad Jones M.D. 02/19/2024 11:09 AM
--- NOTE | 2024-02-19 12:22 | Anesthesiology Progress Note ---
Date of Service February 19, 2024 Anesthesia Post Procedure Vital Signs Vital Signs: Temp Pulse Pulse Resp BP Pulse Ox O2 Del Method 02/19/24 12:00 36.7 C 76 12 94/61 L 98 Room Air 02/19/24 11:50 75 13 97/61 L 95 Room Air 02/19/24 11:40 77 15 98/62 L 96 Room Air 02/19/24 11:30 83 18 93/59 L 94 Room Air 02/19/24 11:20 79 17 94/62 L 97 Room Air 02/19/24 11:10 87 20 95/56 L 94 Room Air 02/19/24 11:00 36.6 C 76 14 94/56 L 95 Room Air 02/19/24 10:50 88 16 97/56 L 95 Room Air 02/19/24 10:40 89 23 92/63 L 96 Room Air 02/19/24 10:30 89 15 99/49 L 98 Room Air 02/19/24 10:22 36.3 C L 88 19 86/54 L 95 Room Air 02/19/24 06:46 36.7 C 89 20 117/75 95 Room Air Pain Intensity Right Knee: Pain Intensity: 3 Transfer of Care Handoff Completed per policy Notes Mental Status: alert / awake / arousable and participated in evaluation Nausea / Vomiting: adequately controlled Pain: adequately controlled Airway Patency, RR, SpO2: stable & adequate BP & HR: stable & adequate Hydration State: stable & adequate Neuraxial Anesthesia: was administered and sensory block is resolving Anesthetic Complications: no major complications apparent and Pt Satisfied with anesthetic care
[2024-02-19] MEDS ORDERED: METOCLOPRAMIDE HCL INJ 5 MG/ML 2 ML VIAL IV PRN (12:24)
[2024-02-19] MEDS ORDERED: TAMSULOSIN HCL 0.4 MG CAP PO PRN (12:24)
[2024-02-19] MEDS ORDERED: traMADol HCL 50 MG TABLET PO PRN (12:24)
[2024-02-19] MEDS ORDERED: NALOXONE HCL 0.4 MG/1 ML VIAL/CARP IV PRN (12:24)
[2024-02-19] MEDS ORDERED: bisacodyL 10 MG SUPP PR PRN (12:24)
[2024-02-19] MEDS ORDERED: HYDROmorphone INJ 0.5 MG/0.5 ML SYR IV PRN (12:24)
[2024-02-19] MEDS ORDERED: ALUMINUM/MAGNESIUM SUSP 30 ML UDC PO PRN (12:24)
[2024-02-19] MEDS ORDERED: MAGNESIUM HYDROXIDE SUSP 30 ML UDC PO PRN (12:24)
[2024-02-19] MEDS: KETOROLAC TROMETHAMINE 15 MG/ML VIAL IV SCH (13:35)
[2024-02-19] MEDS ORDERED: ACETAMINOPHEN 500 MG TAB PO SCH (14:00)
[2024-02-19] MEDS: TRANEXAMIC ACID / 0.7% NACL 1,000 MG/100 ML BAG IV SCH (17:15)
[2024-02-19] MEDS: ASCORBIC ACID 500 MG TAB PO SCH (19:39)
[2024-02-19] MEDS: ATORVASTATIN 40 MG TAB PO SCH (19:39)
[2024-02-19] MEDS: ASPIRIN 81 MG ECTAB PO SCH (19:39)
[2024-02-19] MEDS: TAMSULOSIN HCL 0.4 MG CAP PO SCH (19:39)
[2024-02-19] MEDS: SENNA 8.6 MG TAB PO SCH (20:13)
[2024-02-19] MEDS: DOCUSATE SODIUM 100 MG CAP PO SCH (20:13)
[2024-02-19] MEDS ORDERED: SENNA 8.6 MG TAB PO SCH (21:00)
[2024-02-20 06:00] LABS: Basophils # (auto) 0.02 K/uL (0.00-0.20); Basophils % (auto) 0.1 %; Eosinophils # (auto) 0.01 K/uL (0.00-0.50); Eosinophils % (auto) 0.1 %; Hematocrit (blood only) 35.3 % (42.0-52.0); Hemoglobin 12.6 g/dl (14.0-18.0); Immature Granulocytes # (auto) 0.08 K/uL (0.01-0.20); Immature Granulocytes % (auto) 0.5 %; Lymphocytes % (auto) 10.1 %; Mean Corpuscular Hemoglobin 32.5 pg (25.0-34.0); Mean Corpuscular Hgb Conc 35.7 g/dL (32.0-36.0); Mean Platelet Volume 9.8 fL (9.4-12.4); Monocytes # (auto) 1.35 K/uL (0.11-0.59); Monocytes % (auto) 9.1 %; Neutrophils # (auto) 11.83 K/uL (1.40-6.50); Neutrophils % (auto) 80.1 %; Platelet Count 207 K/uL (130-400); RDW Coefficient of Variation 12.1 % (11.5-14.5); RDW Standard Deviation 40.1 fL (36.4-46.3); Red Blood Count 3.88 M/uL (4.70-6.10); White Blood Count 14.79 K/ul (4.8-10.8)
[2024-02-20 06:22] LABS: BUN Creatinine Ratio 31.5 (10-20); Calcium 8.7 mg/dl (8.6-10.3); Creatinine Clr Calc Pharmacy 101.2 ml/min; Potassium 3.9 mmol/L (3.5-5.1)
--- NOTE | 2024-02-20 07:39 | Orthopedic Progress Note ---
Date of Service February 20, 2024 Assessment & Plan (1) Status post right hip replacement: Plan: 68-year-old gentleman postop day 1 from a right hip replacement doing pretty well. Pains controlled. Hips located. He is neurologically intact. Plan: 1. DVT prophylaxis including thigh-high teds, SCDs, aspirin twice a day. 2. PT/OT. He can fully weight-bear as tolerated. Right total hip protocol. 3. Pain control. Doing okay with current pain regimen. 4. Disposition. Plan is to discharge to home with some home health if he does okay in therapy today. Admission and Anticipated Discharge Date Admission Date: February 19, 2024 Subjective 68-year-old gentleman postop day 1 from right hip replacement. He is doing well. Had a period night. Pains controlled. Denies any chest pain or shortness of breath. Not feeling dizzy or lightheaded. Hoping to go home later today. Physical Exam Physical Exam: Physical examination reveals a pleasant middle-age male. He is lying in bed looks pretty comfortable this morning. Examination of the right hip and leg reveals leg to be well aligned. Dressings clean dry and intact. Thigh is soft and supple. He is neurologically intact. Respiratory: normal respiratory effort, lungs clear to auscultation Cardiovascular: RRR, no murmur, no edema Gastrointestinal (Abdomen): normal bowel sounds, soft, nontender, no hepatosplenomegaly Results & Data Vital Signs (Past 12 Hours) Vital Signs Temp Pulse Resp BP BP Pulse Ox O2 Del Method 02/20/24 07:11 36.5 C 70 18 133/85 95 Room Air 02/20/24 03:30 36.5 C 72 16 121/71 98 Room Air 02/19/24 22:34 36.9 C 65 16 128/71 94 Room Air Laboratory Results Hemoglobin is 12.6. Hematocrit is 35.3. Electrolytes are stable.
[2024-02-20] MEDS: MULTIVITAMIN TAB PO SCH (08:38)
[2024-02-20] MEDS: dexAMETHasone 10 MG in SYRINGE 0 ML IV SCH (08:38)
--- NOTE | 2024-02-23 09:04 | Discharge Summary ---
Date of Service February 23, 2024 Admission HPI (Per Admitting) . The patient is a 68-year-old gentleman that now almost 8 years out from a right knee replacement. His knee is done pretty well but he has developed pain and discomfort in the right leg over the past several years. Described to gotten worse over time. Describes groin pain thigh pain and just right leg pain. No numbness. He has become more debilitated by this. He is limited his activities. He would like this fixed. Of note, he did quite well after his knee replacement surgery. He really did not take much in way of pain medicine and recovered nicely. Admission Exam (Per Admitting) . Physical examination reveals a pleasant healthy middle-age male. Examination of the right leg reveal patient ambulates with a slight bit of a limp. His leg lengths are fairly equal. He has pain with any type of hip motion. Internal rotation to about 10 degrees. Negative straight leg raise. He is neurologically intact. Examination of the right knee reveals well-healed incision. No swelling. Range of motion 0-1 20. No instability. Principal Diagnosis Same as "Discharge Diagnosis" noted below under Discharge Instructions. Discharge Data Procedures Performed Operation Date: 02/19/24 08:50 Actual Procedures p Right Total Hip Arthroplasty(Right) - Suraj Esparza MD Hospital Course (1) Status post right hip replacement: This is a 68 year old patient admitted on 02/19/24 and underwent total hip arthroplasty. He tolerated the procedure well and there were no complications. Transferred to the PACU post op and later to the orthopedic floor for further care. He was given ancef for antibiotic prophylaxis. He was also given CATARINO stockings, SCDs, and aspirin for DVT prophylaxis. Hemoglobin, hematocrit, and vital signs were monitored during his hospital stay and remained stable. Did not require any blood transfusions. There were no complications during his hospital stay. By post op day #1 the patient was tolerating a regular diet, pain was reasonably controlled with oral pain medicine, and he was participating in physical therapy. On post op day #1 the patient was discharged home and set up with home health care. He was given printed discharge instructions including prescriptions for extra strength tylenol, aspirin, ketorolac, zofran, senokot, and tramadol. Continue hip precautions. Continue physical therapy, weight bearing as tolerated. Continue CATARINO stockings. Follow up approximately 2 weeks post op or sooner if there are problems or concerns. PG Care Time/CCT Total # of Minutes Spent Total Time Spent with Patient: : Discharge Plan Discharge Items Patient Disposition: Home - Home Health Services Reason For Visit: Right Hip Osteoarthritis Discharge Diagnosis: Right Hip REplacement Activity: Per Instructions section Activity Comment: Follow/Obey hip precautions at all times. Weightbearing: Full weightbearing Weightbearing Comment: Weightbear as tolerated obeying hip precautions at all times. Non-emergency contact: Surgeon Call non-emergency contact if: you have any medication questions Follow-up/Referrals: Cornelio Navarro MD [Primary Care Provider] - Diet: Regular Addtl Attending Provider Instructions: ACTIVITY RECOMMENDATIONS: Diet: * You may resume previous diet. Physical Therapy: * Aggressive physical therapy is not usually needed. You will learn to take care of yourself safely and walk. * Follow the "Hip Precautions Instructions." * In some cases, the formula room worker at the hospital will arrange to have a therapist come to your house for the first couple of weeks to help you learn these skills. * You need to practice on your own or with the help of a family member as needed. * When you learn these skills, most of the therapy can be done on your own. Home Exercise: * You were shown a series of exercises in the hospital. Do these exercises three to four times each day including the exercises you were shown in physical therapy. Walking: * Get up and walk several times each day. For the first four weeks, try not to stand or walk for more than one hour at a time. If you do stand or walk for more th an one hour, you will not hurt anything, but your leg will likely swell. * As you feel comfortable, you may change from the walker or crutches to a cane and then to independent walking. MEDICATIONS: New Medicine: * You will likely be taking one or more of these medicines: 1. Tramadol - Take, as directed, when you need it, every six hours to control your pain. 2. Aspirin - Thins your blood to lessen the chance of forming a blood clot. * The most common side effects of pain medicine and iron are nausea and constipation. If nausea or constipation is too much of a problem or if you have any questions about your new medicines or doses, call [facility] at . We will try to help you manage these issues. "VERY IMPORTANT TO READ AND REVIEW" Pain: * The immediate post-operative period after hip replacement surgery is often quite painful. * You are given a prescription for pain medicine. You should take it, as directed, when you need it, especially before physical therapy and before going to bed. Pain that interferes with sleep is very common and can last several months. * You will likely need pain medicine for the first two to four weeks. It will not stop all of the pain. The pain will lessen and as you feel better, you may change to milder pain medicine such as Tylenol. * The most common side effects of pain medicine are nausea and constipation, so don't take more than you need. SPECIAL CARE INSTRUCTIONS: TEDs/Elastic Stockings: * The white elastic stockings help limit swelling and prevent blood clots from forming in your legs. The more you wear them, the more they work. * Wear them for six weeks. Incision Site Care: * Remove dressing postoperative day 2 and then shower. Keep direct shower pressure off the incision site. * After showering, cover jeffery with dry gauze and change daily or more frequently if the dressing is getting saturated with drainage. * May completely stop using bandage if wound is dry and no drainage * [place] are removed between 2 and 3 weeks post-op. If your follow-up appointment is made before 2 weeks, please have your appointment re- scheduled. It is too early to remove the jeffery. Prevention of Infection: * Take antibiotics one hour before any dental cleaning, dental work, urological procedure, gastrointestinal procedure or any invasive surgery in order to prevent your new joint from getting infected. * You may get the antibiotics from the doctor performing the procedure or you may call our office at before and we will call in a prescription to the pharmacy of your choice. Things to Watch For: * Drainage from the incision site that occurs more than one week after your surgery. * Severely increased leg pain or swelling. * Increased redness at the incision site. * Fever above 102 degrees Fahrenheit. * Unusual chest pain or shortness of breath. * Unusual pain or burning with urination. Call [facility] at with any of the above problems or if you have any questions about your medicines or recovery. FOLLOW UP VISIT: Make an appointment to see your doctor for approximately two weeks after surgery for a progress check and staple removal by calling the office at . Pending Studies at Discharge: No Stand-Alone Forms: My [facility], Smoking Cessation Medications and DC Order Prescriptions: Continued tramadol 50 mg tablet 50 - 100 mg PO Q6 PRN (Reason: pain) Qty: 30 0RF Rx Instructions: Take as needed for pain ondansetron 4 mg tablet,disintegrating 4 mg PO Q8 PRN (Reason: nausea) Qty: 20 1RF Rx Instructions: Take as needed for nausea ketorolac 10 mg tablet 10 mg PO Q6 5 Days Qty: 20 0RF Rx Instructions: Take 4 times per day with food for 5 days to lessen pain and swelling. sennosides [Senokot] 8.6 mg tablet 8.6 mg PO BID 14 Days Qty: 28 0RF Rx Instructions: Take two times a day to prevent/treat constipation acetaminophen [Tylenol Extra Strength] 500 mg tablet 1,000 mg PO TID 30 Days Qty: 180 0RF Rx Instructions: Take 3 times per day to lessen pain. aspirin [Tomas Low Dose Aspirin] 81 mg tablet,delayed release (DR/EC) 81 mg PO BID 45 Days Qty: 90 0RF Rx Instructions: Take to prevent blood clots. atorvastatin [Lipitor] 40 mg tablet 40 mg PO QPM ascorbic acid (vitamin C) [Vitamin C] 1,000 mg Tablet 1 g PO QPM tamsulosin 0.4 mg capsule 0.4 mg PO QPM Discontinued ibuprofen 200 mg Tablet 200 mg PO Q6H PRN (Reason: prn) Admission Data Admit Date/Time: 02/19/24 10:25 Attending Provider: Suraj Esparza Admit Provider: Suraj Esparza Primary Care Provider: Cornelio Navarro Other Providers: [facility],Home Health Other Interventions: Discharge Summary Assessment (RN) Last Done: 02/20/24 10:53
== END 2024-02-20 12:07 | disposition home health service (06) ==
LOC: ASU 06:16 → 3E 06:16